=== PATIENT | male | born 1975 | race Caucasian/White ===

== ENCOUNTER 2024-12-01 11:35 | Emergency (ER) | payer MEDICAID, SELFPAY ==
[2024-12-01 11:37] VITALS: BP 145/92
--- NOTE | 2024-12-01 12:16 | ED.GENMED ---
History of Present Illness
General
Chief Complaint: Musculo-Skeletal Complaint
Time Seen by Provider: 12/01/24 11:51
History of Present Illness
History of Present Illness:
49-year-old male presents to the emergency department for evaluation of left mandibular/facial pain and swelling for the past 1 to 2 days. Having pain with opening the jaw or chewing. Denies any headache or vision changes. No dysphagia. Pain is
began radiating to the ear today.
Past History
Past History
ED Past Medical History: HTN, IDDM and Other (Cellulitis, Chronic low back pain, obesity, Gastritis, PE)
ED Past Surgical History: Cholecystectomy and Other (Gastric bypass with subsequent reversal. Left upper extremity PICC line)
Social History
Tobacco: Non-smoker
Alcohol: None
Drug: None
Personal:
Living: with family
Employment: Not employed (Disability from low back pain)
Family History
Family History: Other (Noncontributory)
Review of Systems
Review of Systems
Allergies reviewed?: Yes
All Other Systems: ROS reviewed and negative except as documented in HPI and ROS
Phy Exam
Physical Exam
Physical Exam:
GEN: Well appearing, NAD, WDWN
HEENT: Oral mucosa moist, no scleral icterus. Tenderness to the left parotid gland with minimal appreciable swelling, no trismus, no anterior or posterior cervical chain adenopathy, no obvious dilated salivary ducts
Cardiac: Regular rate
Lung: No respiratory distress, no tachypnea
MSK: No gross deformity or injuries
Skin: Good color, no pallor or jaundice, no rashes
Neuro: AO x3, moves all extremities freely
Psych: Calm, cooperative
Course
Vital Signs
Initial and Last Documented VS:
Initial Vital Signs
Temp Pulse Resp BP Pulse Ox
98.6 F 85 16 145/92 96
12/01/24 11:37 12/01/24 11:37 12/01/24 11:37 12/01/24 11:37 12/01/24 11:37
Last Documented Vital Signs
Temp Pulse Resp BP Pulse Ox
98.6 F 85 16 145/92 96
12/01/24 11:37 12/01/24 11:37 12/01/24 11:37 12/01/24 11:37 12/01/24 12:17
MDM/Problems Addressed
MDM/Problems Addressed:
Will treat empirically for parotitis, recommended supportive care with secretagogue therapy such as sour candies and massage/warm compresses, no indication for labs or imaging
*Pulse Oximetry
SaO2: 96
Oxygen Mode of Delivery: Room air
Patient hypoxic: no
*Critical Care Note
Total Time (30-74mins, 75-104mins- exclusive of procedures): Not Applicable
ED Attending Note
-
Portions of this chart may have been created with voice recognition software.� Occasional wrong word or��sound alike� substitutions may have occurred due to the inherent limitations of voice recognition software.
Discharge Plan
Departure
Patient Disposition: Home (Routine Discharge)
Date of Disposition: 12/01/24
Time of Disposition: 12:17
Patient with high blood pressure during this ER visit?: No
Discharge Problem:
Acute parotitis
Instructions: Parotitis
Prescriptions:
New
amoxicillin-pot clavulanate 875-125 mg tablet
1 tab PO BID 7 Days Qty: 14 0RF
No Action
lisinopril 10 MG tablet
10 mg PO DAILY
Januvia 25 MG tablet
25 mg PO DAILY
acetaminophen [Tylenol Extra Strength] 500 MG tablet
500 mg PO Q8HPRN PRN (Reason: Fever) Qty: 30 0RF
pantoprazole 40 mg Tablet,Delayed Release (Dr/Ec)
40 mg PO DAILY
multivitamin Capsule
1 cap PO DAILY
diazepam 5 mg Tablet
5 mg PO TIDPRN PRN (Reason: vertigo) Qty: 7 0RF
Activity Restrictions/Additional Instructions:
Sour candy/ninfa to increase salivation
Warm compresses and massage to face
Return if worsening in 3-5 days
Interventions
Interventions:
*Risk Screen - Suicide Last Done: 12/01/24 11:37
*General Assessment Last Done: 12/01/24 12:30
*Neglect/Abuse Screening Last Done: 12/01/24 11:37
*ED- Fall Risk Assessment Last Done: 12/01/24 12:30
*ED COVID-19 Vaccine History Last Done: 12/01/24 12:30
*Nursing Disposition Last Done: 12/01/24 12:30
ED-Musculoskeletal Assessment Last Done: 12/01/24 12:30
Discharge Date and Time
Discharge Date/Time: 12/01/24 12:30
Print Language: SLOVAK
== END 2024-12-01 12:30 | disposition home or self-care (01) ==
LOC: EMR 11:35
PROVIDERS: EMERGENCY PHYSICIAN Emergency Medicine; FAMILY PHYSICIAN Family Medicine
DX: K11.21 Acute sialoadenitis (principal); I10 Essential (primary) hypertension; E11.9 Type 2 diabetes mellitus without complications; Z79.4 Long term (current) use of insulin; Z87.19 Personal history of other diseases of the digestive system
CPT/HCPCS: 99283